=== PATIENT | male | born 1945 | race Caucasian/White ===

== ENCOUNTER → 2021-03-27 | Outpatient (CLI) | payer MEDICARE ==
[2021-03-23 11:00] VITALS: BP 115/71
[~2021-03-27] MED LIST: ALBU2.5V8 NEB; AMOX1TAB58 PO; ASPI325T8 PO; CHOL10003 PO; CYCL10TA2 PO; DOCU100C28 PO; FURO40TA4 PO; GENT5DRO3 EACHEYE; LACT1CAP19 PO; LOSA-73 PO; METO25TA4 PO; METO50TA4 PO; MULT-658 PO; NAPR-695 PO; NITR1PAT72 TD; OMEG1CAP27 PO; OMEP20CA16 PO; PANT40TA77 PO; PSYL0.5215 PO; SIMV80TA17 PO; [UNRECOGNIZED DRUG - CODE] PO; calcium with D
[2021-03-27 10:48] LABS: CALCIUM 10.2 mg/dL (8.5-10.1); GFR 72.5; POTASSIUM 5.1 mmol/L (3.5-5.1)
[2021-03-27 10:55] LABS: ALBUMIN 2.3 g/dL (3.4-5.0); ALBUMIN/GLOBULIN RATIO 0.5 (1.0-1.7); TOTAL BILIRUBIN 0.1 mg/dL (0.2-1.0); TOTAL PROTEIN 7.1 g/dL (6.4-8.2)
[2021-03-27 11:12] LABS: BASO # 0.1 x10^3/uL (0.0-0.2); BASO % 1 % (0-3); EOS # 0.5 x10^3/uL (0.0-0.7); EOS % 5 % (0-3); HEMATOCRIT 37.8 % (39.0-53.0); LYMPH # 1.4 x10^3/uL (1.0-4.8); LYMPH % 15 % (24-48); MEAN CORPUSCULAR HEMOGLOBIN 26 pg (25-35); MEAN CORPUSCULAR HGB CONC 32 g/dL (31-37); MEAN CORPUSCULAR VOLUME 81 fL (79-100); MONO # 0.9 x10^3/uL (0.0-1.1); MONO % 10 % (0-9); NEUT # 6.5 x10^3/uL (1.8-7.7); NEUT % 69 % (31-73); PLATELET COUNT 443 x10^3/uL (140-400); RED BLOOD COUNT 4.68 x10^6/uL (4.30-5.70); RED CELL DISTRIBUTION WIDTH 15.3 % (11.5-14.5); WHITE BLOOD COUNT 9.4 x10^3/uL (4.0-11.0)
== END ==
LOC: ONCLAB 10:10
PROVIDERS: ATTEND Internal Medicine Hematology & Oncology
DX: C34.00 Malignant neoplasm of unspecified main bronchus (principal)
CPT/HCPCS: 36415; 80053; 85025

== ENCOUNTER → 2021-04-07 | Outpatient (CLI) | payer MEDICARE ==
[2021-03-23 11:00] VITALS: BP 115/71
[~2021-04-07] MED LIST changes: +ACET500T33 PO; +GADOTERATE 7.5 MMOL/15ML VIAL. IVP ONE; +PROBIOTIC PO; +VIT C PO
--- NOTE | 2021-04-07 12:58 | RAD ---
EXAM: Brain MRI with and without contrast. HISTORY: Cancer staging TECHNIQUE: Multiplanar, multisequence magnetic resonance imaging of the brain was performed prior to and following the administration of intravenous contrast. COMPARISON: None. FINDINGS: There is no restricted diffusion to suggest acute or subacute infarction. There is no susce ptibility effect to suggest hemorrhage. There is no mass effect or midline shift. There is no hydroce phalus. There is cerebral volume loss. There are extensive scattered areas of signal change throughou t the cerebral white matter, most commonly due to chronic small vessel disease in patients of this ag e. There is a suspected chronic infarct within the posterior medial left parietal lobe. No suspicious enhancing lesion is seen. The orbits are unremarkable. The paranasal sinuses are unrema rkable. There is minimal mastoid fluid. There are normal flow voids within the cerebral vessels. Ther e is fusion is rotation throughout the visualized cervical spine, not formally assessed on this exam. There is soft tissue pannus surrounding the dens and degenerative change throughout the visualized c ervical levels. IMPRESSION: 1. No acute intracranial finding or evidence of intracranial metastatic disease. 2. Extensive scattered areas of signal change within the cerebral white matter, likely due to chronic small vessel disease in a patient of this age. 3. 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 4. Cerebral atrophy. Electronically signed by: Tessie Petersen MD (04/07/2021 12:56 PM) [id number]
--- NOTE | 2021-04-07 15:52 | RAD ---
CLINICAL HISTORY: Left lower lobe Lung cancer, initial evaluation COMPARISON: CT 03/21/2021, 03/18/2021 TECHNIQUE: Location of scan: [facility] Radiopharmaceutical Dose: 15.03 mCi F-18 FDG intravenous Blood glucose at time of study: 107 FDG uptake time = 60 minutes. Images were obtained from the mid head to the mid thighs. A low dose, noncontrast CT study was performed for the purpose of attenuation correction and anatomic localization. FINDINGS: Head and Neck: Physiologic activity is seen within the head and neck Chest: Nodular opacity in the medial left lower lobe measures approximately 4.8 x 4.6 cm with an SUV max of 20.2. Nodular hypermetabolic foci are seen in the left pleural space which may represent metastatic involve ment or reactive change given recent pigtail catheter placement SUV max measuring 11.5 caudally. Smal ler nodular foci are seen throughout the left pleural space, a more focal region laterally left upper lobe measures 4 x 1.5 cm with an SUVmax of 7.9. Small left pleural effusion is mildly hypermetabolic . No definite hypermetabolic mediastinal or hilar lymphadenopathy. No hypermetabolic right lung lesio n. Abdomen and Pelvis: Hypermetabolic portocaval lymph node has an SUVmax of 4.4. Increased activity within the rectum with an SUV max of 6.1. Mild uptake within the sigmoid colon with an SUV max of 3.4 Physiologic activity is seen within the renal collecting systems, bowel and solid organs including li herlinda. Aortic calcifications are seen. Otherwise, no definite hypermetabolic lymphadenopathy in the abd omen or pelvis. Moderate colonic stool content. No bowel obstruction. Simple appearing left upper pole renal cyst. Skeletal: No suspicious hypermetabolic osseous lesion. Reference SUV Values: Mediastinal SUV Max: 2.5 Liver SUV Max: 3.5 IMPRESSION: 1. Hypermetabolic masslike opacity in the left lower lobe is suspicious for primary malignancy and c an be correlated with biopsy. 2. Hypermetabolic pleural nodularity is suspicious for pleural metastatic disease. Mildly hypermetab olic left pleural effusion is also seen. 3. Borderline hypermetabolic portacaval lymph node with an SUV max of 4.4 upper lobe although not en larged by size criteria and therefore may be reactive or metastatic. 4. Increased uptake within the rectum and mid sigmoid colon, primary malignancy is not excluded and recommend correlation with colonoscopy. Radiation Dosimetry: The radiopharmaceutical used for this exam delivers approximately 0.7 mSv/mCi (70 mRem/mCi) Source: ICRP Publication 106 Electronically signed by: Franklyn Benites MD (04/07/2021 3:49 PM) [id number]
== END ==
LOC: MRI 11:29
PROVIDERS: ATTEND Internal Medicine Hematology & Oncology
DX: C34.00 Malignant neoplasm of unspecified main bronchus (principal); R91.1 Solitary pulmonary nodule; J90 Pleural effusion, not elsewhere classified; I73.9 Peripheral vascular disease, unspecified; H16.429 Pannus (corneal), unspecified eye; I70.0 Atherosclerosis of aorta
CPT/HCPCS: 70553; 78815; A9552; A9575

== ENCOUNTER 2021-04-26 08:25 | Outpatient (CLI) | payer MEDICARE ==
[2021-04-26] VITALS (11 sets, daily range): BP systolic 112–138; BP diastolic 65–83
[~2021-04-26] VITALS: Ht 172.7 cm; Wt 82.2 kg
[~2021-04-26 08:25] MED LIST changes: -ACET500T33 PO; -GADOTERATE 7.5 MMOL/15ML VIAL. IVP ONE; -PROBIOTIC PO; -VIT C PO
[2021-04-26] MEDS ORDERED: LIDOCAINE WITH 8.4% SOD BICARB 3 ML DISP.SYRIN. ONE (08:53)
[2021-04-26] MEDS ORDERED: LIDOCAINE 1%/EPI 1:100,000 20 ML VIAL. ONE (08:53)
[2021-04-26] MEDS ORDERED: VIT C PO (09:04)
[2021-04-26] MEDS ORDERED: PROBIOTIC PO (09:04)
[2021-04-26] MEDS ORDERED: ACET500T33 PO (09:04)
[2021-04-26] MEDS ORDERED: fentaNYL PF VIAL 250 MCG/5 ML VIAL ONE (09:06)
[2021-04-26] MEDS ORDERED: MIDAZOLAM HCL/PF 5 MG/5 ML VIAL. ONE (09:06)
[2021-04-26] MEDS ORDERED: MIDAZOLAM HCL/PF 5 MG/5 ML VIAL. IV ONE (09:15)
[2021-04-26] MEDS ORDERED: LIDOCAINE 1%/EPI 1:100,000 20 ML VIAL. SQ ONE (09:15)
[2021-04-26] MEDS ORDERED: LIDOCAINE WITH 8.4% SOD BICARB 3 ML DISP.SYRIN. IJ ONE (09:15)
[2021-04-26] MEDS ORDERED: fentaNYL PF VIAL 250 MCG/5 ML VIAL IV ONE (09:15)
[2021-04-26 09:24] LABS: BASO # 0.1 x10^3/uL (0.0-0.2); BASO % 1 % (0-3); EOS # 0.8 x10^3/uL (0.0-0.7); EOS % 10 % (0-3); HEMATOCRIT 37.8 % (39.0-53.0); HEMOGLOBIN 12.3 g/dL (13.0-17.5); LYMPH # 1.5 x10^3/uL (1.0-4.8); LYMPH % 17 % (24-48); MEAN CORPUSCULAR HEMOGLOBIN 26 pg (25-35); MEAN CORPUSCULAR HGB CONC 32 g/dL (31-37); MEAN CORPUSCULAR VOLUME 80 fL (79-100); MONO # 0.8 x10^3/uL (0.0-1.1); MONO % 9 % (0-9); NEUT # 5.5 x10^3/uL (1.8-7.7); NEUT % 63 % (31-73); PLATELET COUNT 263 x10^3/uL (140-400); RED BLOOD COUNT 4.73 x10^6/uL (4.30-5.70); RED CELL DISTRIBUTION WIDTH 15.9 % (11.5-14.5); WHITE BLOOD COUNT 8.7 x10^3/uL (4.0-11.0)
[2021-04-26 09:32] LABS: CALCIUM 9.8 mg/dL (8.5-10.1); CREATININE 0.8 mg/dL (0.7-1.3); GFR 93.7
[2021-04-26 09:38] LABS: PROTHROMBIN TIME PATIENT 13.2 SEC (11.7-14.0)
--- NOTE | 2021-04-26 12:33 | RAD ---
Date: 04/26/2021 PROCEDURES: 1. Fluoroscopically and ultrasound-guided placement of right internal jugular tunnel central venous c atheter with port (Bard PowerPort, Groshong tip ). 2. CT-guided biopsy, left lung mass Clinical Indication: Primary lung cancer, left lower lobe. Pleural metastasis. Further tissue sampli ng needed for pathologic evaluation/PDL testing Consent: The procedure was explained in its entirety to the patient or the patients designated repres entative by a member of the treatment team, including a discussion of the risks, benefits and commonl y accepted alternatives to the procedure, as well as the expected consequences of no therapy whatsoev er. Discussion of the risks included, but was not limited to, those that are most frequent and thos e that are rare but possibly severe or life-threatening, as well as the possibility of unforeseen com plications. The patient was brought to the CT scanner and placed in the prone position. A timeout procedure was p erformed. The posterior chest was prepped and draped using sterile barrier technique. CT imaging was obtained redemonstrating a left lower lobe pulmonary mass with multifocal pleural thickening. The dom inant masses targeted for biopsy. 1% lidocaine was administered for local anesthesia. Under intermitt ent CT guidance a 17-gauge needle was advanced into the mass and core biopsy samples were obtained. T he needle was removed. Manual pressure was held. Repeat CT imaging demonstrates no pneumothorax or ot her immediate complication. Sterile dressings were applied. The patient was transferred to the fluoro scopy suite in stable condition. A timeout procedure was repeated. The right neck and chest were prepped and draped using maximum ster ile barrier technique including the use of: Current guideline approved cutaneous antisepsis, a large sterile sheet to establish a sterile field. Additionally the walking dragline operator wore a hat, mask, sterile glove s, a sterile gown during the procedure as well as practiced acceptable hand hygiene prior to placing the port. Ultrasound evaluation showed the right jugular vein to be patent and compressible. 1 % lidocaine with epinephrine was administered to the skin and subcutaneous tissues overlying the right neck and chest . Under direct ultrasound guidance a single wall puncture was made followed by tract dilation and sidra cement of a sheath. An ultrasound image was saved and sent to PACS. Next, an incision was made in an infraclavicular location and a pocket created. The catheter was tunneled between the pocket and the venotomy site. The catheter was advanced through the peel away sheath, under fluoroscopic guidance, such that it's tip was in the mid right atrium. The catheter was connected to the port reservoir. Th e port was accessed and found to flush and aspirate normally. The reservoir was then placed into the subcutaneous pocket. The wound was closed in layers using 4-0 Vicryl suture. Dermabond was applied overlying the wound, and venotomy site. The patient tolerated procedure without immediate complicatio n. Sedation: The procedure was performed under conscious sedation including continuous cardiopulmonary m onitoring via a dedicated sedation nurse. Kdue-os-nbta sedation time: 70 minutes Fluoroscopy time: 0.4 mins Dose area product 2 Perez centimeter squared Impression: 1. Successful CT-guided biopsy, left lower lobe pulmonary mass 2. Placement of a right internal jugular port with ultrasound and fluoroscopic guidance CT DOSING PQRS STATEMENT: One or more of the following individualized dose reduction techniques were utilized for this examinat ion: 1. Automated exposure control 2. Adjustment of the mA and/or kV according to patient size 3. Use of iterative reconstruction technique Electronically signed by: Juanjo Thompson MD (04/26/2021 12:31 PM) [id number]
--- NOTE | 2021-04-26 13:40 | NUR ---
Discharge Note: ROCKY PEDRAZA Discharge instructions and discharge home medications reviewed with Patient and a copy given. All questions have been answered and understanding verbalized. The following instructions and handouts were given: Lung biopsy, Port Placement, and moderate sedation. Discontinued lines and drains: Right wrist iv dc'd, tip intact, bandage applied. Patient discharged to home with via personal vehicle.
--- NOTE | 2021-04-26 17:22 | RAD ---
XR CHEST 1V CLINICAL INDICATIONS: Reason: Post biopsy / Spl. Instructions: / History: COMPARISON: March 23, 2021. Findings: There is mild elevation of the left hemidiaphragm. Small left-sided pleural effusion and as sociated left lung base atelectasis or infiltrate is evident and there is mild improvement. Right kenney g field remains clear. No pneumothorax is seen. Heart size and mediastinum and pulmonary vasculature and both david are unremarkable. Right IJ central line is in place and the tip is seen within the mid superior vena cava above the level of the right atrium. IMPRESSION: Mild improvement in small left-sided pleural effusion and associated left lung base atele ctasis or infiltrate. Placement of right IJ central line. No pneumothorax. Electronically signed by: Catarino Hadley MD (04/26/2021 5:19 PM) [id number]
--- NOTE | 2021-04-28 18:08 | PATHOLOGY ---
[facility] Accession Number: [id number] . 01 Material submitted: . lung - LEFT LUNG MASS BIOPSY. Modifiers: left . 01 Clinical history: . L LUNG CA . 02 Diagnosis: Left lung mass, CT guided needle biopsies: - ADENOCARCINOMA, MODERATELY DIFFERENTIATED. SEE COMMENT. (JPM:joel; 04/27/2021) S 04/28/2021 0845 Local . 02 Comment: Sections of the left lung mass needle biopsy show replacement of lung parenchyma by a malignant epithelial neoplasm. The latter is composed of irregular acinar structures which infiltrate a reactive fibrotic stroma. The tumor also focally has a papillary configuration. The tumor cells have modest amounts of eosinophilic cytoplasm, and possess enlarged, rounded to ovoid moderately pleomorphic hyperchromatic nuclei. There are mitotic figures present. A properly controlled panel of immunoperoxidase stains is obtained on A1 and yields the following results: . Cytokeratin 7: Tumor cells positive. Cytokeratin 20: Tumor cells negative. CDX2: Tumor cells negative. TTF-1: Tumor cells positive. Napsin A: Tumor cells focally positive. . The morphologic and immunophenotypic findings are supportive of the diagnosis of a moderately differentiated pulmonary acinar adenocarcinoma. The results were discussed with Dr. Thompson on 04/27/2021. The case is also examined by Dr. Garcia, who concurs with the diagnosis. (JPM:joel; 04/27/2021) . . Special stains performed: Immunoperoxidase stains for CK7, CK20, CDX2, TTF-1 and napsin A on A1 . 02 Electronically signed: . Dread Membreno MD, Pathologist NPI- [id number] . 01 Gross description: . The specimen is received in formalin, labeled "Teodoro Eddy, left lung mass". Received are two needle cores of pale hilliard tissue measuring 0.5 and 1.2 cm in length, with each measuring 0.1 cm in diameter. The specimen is submitted entirely in cassettes A1 and A2. (CAA; 04/26/2021) QAC/QAC 04/26/2021 1516 Local . 02 Pathologist provided ICD-10: C34.92 . 02 CPT . 565253, [id number], S37257 Specimen Comment: A courtesy copy of this report has been sent to [phone], [phone] Specimen Comment: [id number], Specimen Comment: Report sent to , DR JEWELL / DR COOLEY Performed at: 01 [facility] [address], [place] [id number] MD Ajay Garcia MD Phone: [phone] Performed at: 02 [facility] [address] [place], [place] [id number] MD Dread Membreno MD Phone: [phone]
== END 2021-04-26 13:46 | disposition home or self-care (01) ==
LOC: INTRAD 08:25
PROVIDERS: ATTEND Internal Medicine Hematology & Oncology
DX: Z45.2 Encounter for adjustment and management of vascular access device (principal); R91.8 Other nonspecific abnormal finding of lung field; C34.32 Malignant neoplasm of lower lobe, left bronchus or lung; I10 Essential (primary) hypertension; E78.00 Pure hypercholesterolemia, unspecified; G47.30 Sleep apnea, unspecified; K21.9 Gastro-esophageal reflux disease without esophagitis; E11.9 Type 2 diabetes mellitus without complications; Z87.891 Personal history of nicotine dependence; Z79.899 Other long term (current) drug therapy; Z98.890 Other specified postprocedural states; Z88.8 Allergy status to other drugs, medicaments and biological substances
CPT/HCPCS: 32408; 36415; 36561; 71045; 76937; 77001; 80048; 85025; 85610; 99152; 99153; C1788; C1892; J0690; J2250; J3010; J3490

== ENCOUNTER 2021-10-30 23:57 | Inpatient (IN) | payer MEDICARE ==
[~2021-10-30] VITALS: Ht 172.7 cm; Wt 76.5 kg
[2021-10-30 23:00] VITALS: BP 113/78
[~2021-10-30 23:57] MED LIST changes: +ACET500T33 PO; +CYCL10TA19 PO; -CYCL10TA2 PO; +PROBIOTIC PO; +VIT C PO
[2021-10-31] VITALS (9 sets, daily range): BP systolic 96–152; BP diastolic 63–83
[2021-10-31] MEDS ORDERED: FERR325T14 PO (00:55)
[2021-10-31] MEDS ORDERED: GABA-585 PO (00:55)
[2021-10-31] MEDS ORDERED: NITR1PAT72 TD (00:55)
[2021-10-31] MEDS ORDERED: HYDR25TA PO (00:55)
[2021-10-31 07:51] LABS: BASO # 0.1 x10^3/uL (0.0-0.2); BASO % 1 % (0-3); EOS % 10 % (0-3); HEMATOCRIT 42.8 % (39.0-53.0); HEMOGLOBIN 13.7 g/dL (13.0-17.5); LYMPH # 1.4 x10^3/uL (1.0-4.8); LYMPH % 14 % (24-48); MEAN CORPUSCULAR HEMOGLOBIN 27 pg (25-35); MEAN CORPUSCULAR HGB CONC 32 g/dL (31-37); MEAN CORPUSCULAR VOLUME 85 fL (79-100); MONO % 10 % (0-9); NEUT # 6.6 x10^3/uL (1.8-7.7); NEUT % 65 % (31-73); PLATELET COUNT 257 x10^3/uL (140-400); RED BLOOD COUNT 5.06 x10^6/uL (4.30-5.70); RED CELL DISTRIBUTION WIDTH 15.7 % (11.5-14.5); WHITE BLOOD COUNT 10.2 x10^3/uL (4.0-11.0)
[2021-10-31 08:07] LABS: CALCIUM 10.7 mg/dL (8.5-10.1); CREATININE 0.7 mg/dL (0.7-1.3); GFR 109.1; POTASSIUM 4.1 mmol/L (3.5-5.1)
[2021-10-31] MEDS ORDERED: MAGNESIUM HYDROXIDE 2,400 MG/30 ML ORAL.SUSP. PO PRN (09:45)
[2021-10-31] MEDS ORDERED: BISACODYL 10 MG SUPP.RECT. PR PRN (09:45)
[2021-10-31] MEDS ORDERED: ZOLPIDEM 5 MG TABLET. PO PRN (09:45)
[2021-10-31] MEDS ORDERED: MORPHINE SULFATE 2 MG/ML INJ. IV PRN (09:45)
[2021-10-31] MEDS ORDERED: ONDANSETRON PF 4 MG/2 ML VIAL. IVP PRN (09:45)
[2021-10-31] MEDS ORDERED: HYDROcodone/APAP 5/325MG 1 TAB TABLET PO PRN (09:45)
[2021-10-31] MEDS ORDERED: ACETAMINOPHEN 325 MG TABLET. PO PRN (09:45)
[2021-10-31] MEDS ORDERED: MAG HYDROX/ALUMINUM HYD/SIMETH 30 ML ORAL.SUSP PO PRN (09:45)
--- NOTE | 2021-10-31 09:48 | PDOC1 ---
History and Physical Date of Admission Date of Admission DATE: 10/31/21 TIME: 09:31 Identification/Chief Complaint Chief Complaint Recurrent left pleural effusion Source Source: Patient History of Present Illness History of Present Illness Patient is a 76-year-old male with past medical history left lung adenocarcinoma, who presents to the ED as a transfer [facility] due to concerns for recurrent left pleural effusion. He was initially sent to [facility] ER at the behest of his PCP, Dr. Stroud. Chest x-ray at [facility] did show a small left pleural effusion with lingular and left lower lobe infiltrate and/or scarring, that appears increased from prior. He states he was admitted on 03/14/2021 and had thoracentesis performed at that time. He did follow-up with oncology, but states he decided not to pursue chemotherapy or radiation for the findings of stage IV lung adenocarcinoma. Patient states he lives at home with his , and gets around at home rather gingerly. At the time of my evaluation he is breathing on room air. Labs on admission were rather unremarkable. He has been admitted for further medical management. Past Medical History Cardiovascular: CAD, Hyperlipidemia Pulmonary: No pertinent hx Musculoskeletal: low back pain Past Surgical History Past Surgical History Cervical fusion, thoracentesis Past Surgical History: Tonsillectomy Family History Family History: Coronary Artery Disease, Diabetes Social History Smoke: No ALCOHOL: none Drugs: None Current Medications Current Medications Active Scripts Active Reported Hydroxyzine Hcl 25 Mg Tablet 25 Mg PO QID NITRO-DUR 0.2mg/hr (Nitroglycerin) 1 Each Patch.td24 1 Each TD DAILY Ferrous Sulfate 325 Mg Tablet 1 Tab PO DAILY Gabapentin (Gabapentin) 100 Mg Capsule 200 Mg PO DAILY Tylenol Extra Strength (Acetaminophen) 500 Mg Tablet 2 Tab PO Q8HRS PRN [probiotic w/vit C] 2 Pkt PO DAILY Gentamicin Sulfate 0.3% Ophth Soln (Gentamicin Sulfate) 5 Ml Drops 1 Drop EACHEYE BID 5 Days Docusate Sodium 100 Mg Capsule 1 Cap PO BID 7 Days Metamucil (Psyllium Husk) 0.52 Gm Capsule 0.52 Gm PO BID Cyclobenzaprine Hcl 10 Mg Tablet 10 Mg PO BID NITRO-DUR 0.2mg/hr (Nitroglycerin) 1 Each Patch.td24 1 Each TD DAILY Vitamin D3 (Cholecalciferol (Vitamin D3)) 1,000 Unit Tablet 1 Tab PO DAILY Losartan Potassium 50 Mg Tablet 50 Mg PO DAILY Simvastatin 80 Mg Tablet 80 Mg PO HS Niacin Flush Free 500 Mg Cap (Niacin (Inositol Niacinate)) 400 Mg Capsule 500 Mg PO BID Centrum Silver Tablet (Multivits-Min/Fa/Lycopene/Lut) 1 Each Tablet 1 Each PO DAILY Omeprazole 20 Mg Capsule.dr 20 Mg PO DAILY Allergies Allergies: Coded Allergies: adhesive (Verified Allergy, Mild, 10/02/13) ROS Review of System GENERAL: Weakness. No history of weight change or fevers. SKIN: No bruising, hair changes or rashes. EYES: No blurred, double or loss of vision. NOSE AND THROAT: No history of nosebleeds, hoarseness or sore throat. HEART: Denies chest pain, denies palpitations. LUNGS: Denies cough, hemoptysis, wheezing or shortness of breath. GASTROINTESTINAL: Denies nausea, vomiting, abdominal pain. GENITOURINARY: Denies dysuria, frequency, urgency, hematuria. NEUROLOGIC: Denies history of numbness, tingling, tremor or weakness. PSYCHIATRIC: Denies anxiety, denies depression. ENDOCRINE: No history of heat or cold intolerance, polyuria or polydipsia. EXTREMITIES: Some muscle weaknes. Denies joint pain, pain on walking or stiffness. Physical Exam Physical Exam General: Alert, Oriented X3, Cooperative, No acute distress HEENT: PERRLA, EOMI Lungs: Decreased breath sounds left lung base. Normal air movement Heart: RRR, no murmurs Cardiovascular: S1, S2 Abdomen: Normal bowel sounds, Soft, No tenderness Extremities: No clubbing, No cyanosis Skin: No rashes, No significant lesion Neuro: Normal speech, Normal tone, Sensation intact Psych/Mental Status: Mental status NL, Mood NL Vitals Vitals Vital Signs Date Time Temp Pulse Resp B/P (MAP) Pulse Ox O2 Delivery O2 Flow Rate FiO2 10/31/21 07:30 98.0 88 18 133/74 (93) 93 Room Air 98.0 Labs Labs Laboratory Tests Test 10/31/21 07:10 White Blood Count 10.2 x10^3/uL (4.0-11.0) Red Blood Count 5.06 x10^6/uL (4.30-5.70) Hemoglobin 13.7 g/dL (13.0-17.5) Hematocrit 42.8 % (39.0-53.0) Mean Corpuscular Volume 85 fL (79-100) Mean Corpuscular Hemoglobin 27 pg (25-35) Mean Corpuscular Hemoglobin Concent 32 g/dL (31-37) Red Cell Distribution Width 15.7 % (11.5-14.5) Platelet Count 257 x10^3/uL (140-400) Neutrophils (%) (Auto) 65 % (31-73) Lymphocytes (%) (Auto) 14 % (24-48) Monocytes (%) (Auto) 10 % (0-9) Eosinophils (%) (Auto) 10 % (0-3) Basophils (%) (Auto) 1 % (0-3) Neutrophils # (Auto) 6.6 x10^3/uL (1.8-7.7) Lymphocytes # (Auto) 1.4 x10^3/uL (1.0-4.8) Monocytes # (Auto) 1.0 x10^3/uL (0.0-1.1) Eosinophils # (Auto) 1.0 x10^3/uL (0.0-0.7) Basophils # (Auto) 0.1 x10^3/uL (0.0-0.2) Sodium Level 140 mmol/L (136-145) Potassium Level 4.1 mmol/L (3.5-5.1) Chloride Level 104 mmol/L (98-107) Carbon Dioxide Level 30 mmol/L (21-32) Anion Gap 6 (6-14) Blood Urea Nitrogen 12 mg/dL (8-26) Creatinine 0.7 mg/dL (0.7-1.3) Estimated GFR (Cockcroft-Gault) 109.1 Glucose Level 95 mg/dL (70-99) Calcium Level 10.7 mg/dL (8.5-10.1) Laboratory Tests Test 10/31/21 07:10 White Blood Count 10.2 x10^3/uL (4.0-11.0) Red Blood Count 5.06 x10^6/uL (4.30-5.70) Hemoglobin 13.7 g/dL (13.0-17.5) Hematocrit 42.8 % (39.0-53.0) Mean Corpuscular Volume 85 fL (79-100) Mean Corpuscular Hemoglobin 27 pg (25-35) Mean Corpuscular Hemoglobin Concent 32 g/dL (31-37) Red Cell Distribution Width 15.7 % (11.5-14.5) Platelet Count 257 x10^3/uL (140-400) Neutrophils (%) (Auto) 65 % (31-73) Lymphocytes (%) (Auto) 14 % (24-48) Monocytes (%) (Auto) 10 % (0-9) Eosinophils (%) (Auto) 10 % (0-3) Basophils (%) (Auto) 1 % (0-3) Neutrophils # (Auto) 6.6 x10^3/uL (1.8-7.7) Lymphocytes # (Auto) 1.4 x10^3/uL (1.0-4.8) Monocytes # (Auto) 1.0 x10^3/uL (0.0-1.1) Eosinophils # (Auto) 1.0 x10^3/uL (0.0-0.7) Basophils # (Auto) 0.1 x10^3/uL (0.0-0.2) Sodium Level 140 mmol/L (136-145) Potassium Level 4.1 mmol/L (3.5-5.1) Chloride Level 104 mmol/L (98-107) Carbon Dioxide Level 30 mmol/L (21-32) Anion Gap 6 (6-14) Blood Urea Nitrogen 12 mg/dL (8-26) Creatinine 0.7 mg/dL (0.7-1.3) Estimated GFR (Cockcroft-Gault) 109.1 Glucose Level 95 mg/dL (70-99) Calcium Level 10.7 mg/dL (8.5-10.1) Images Images PATIENT: ROCKY PEDRAZA DACCOUNT: [id number] : 1945 LOCATION: ER AGE: 76 SEX: M EXAM STATUS: REG ER ORD. PHYSICIAN: ALBERT GARLAND DO REASON: Dizziness, weakness PROCEDURE: PORTABLE CHEST 1V EXAMINATION: Chest radiograph. VIEWS: Single AP view of the chest COMPARISON: Chest radiograph from 06/02/2021 INDICATION:76 years, Male, dizziness, weakness. FINDINGS: Right chest Port-A-Cath with tip in the SVC. Stable cardiac mediastinal silhouette. Left perihilar and basilar opacity appears mildly increased from prior. Small left pleural effusion. Biapical pleural scarring. Right lung is clear. No acute osseous process. Cervical spinal fusion instrumentation is again noted. IMPRESSION: Small left pleural effusion with lingular and left lower lobe infiltrate and/or scarring, this appears increased from prior. Electronically signed by: Madi Hinojosa DO (10/30/2021 2:50 PM) [id number] VTE Prophylaxis Ordered VTE Prophylaxis Devices: No VTE Pharmacological Prophylaxi: Yes Assessment/Plan Assessment/Plan Recurrent left pleural effusion Plan: X-ray from [facility] showed small left pleural effusion with lingular and left lower lobe infiltrate and/or scarring, that appears increased from prior. He is breathing comfortably on room air with his only concern being his intermittent dizziness and difficulty getting around the house. Will repeat chest x-ray and consult pulmonology. If immediate need for thoracentesis, will consult IR. If not he may follow-up as outpatient for thoracentesis. FEN - Cardiac diet PPX - Heparin FULL CODE Dispo - observation for above Advance Care Planning: Total time spent ejoh-bs-neac with patient 16 minutes in discussion with goals of care, comfort care, end-of-life care, code status; patient names his (Lisbeth Pedraza) as surrogate decision-maker. Justifications for Admission Other Justification YOSI PEREYRA MD Oct 31, 2021 09:48
--- NOTE | 2021-10-31 10:11 | NUR ---
SS following for discharge planning. SS reviewed pt chart and discussed with pt RN. Pt is from home with spouse and is currently on room air. History of lung cancer. Pt has left PE. Pulmonology consulted. PT/OT ordered. SS will continue to follow for discharge planning.
--- NOTE | 2021-10-31 11:34 | CONS ---
DATE OF CONSULTATION: 10/31/2021 PULMONARY CONSULTATION ATTENDING PHYSICIAN: Virgilio García MD. REASON FOR CONSULTATION: Lung cancer, possible recurrent pleural effusion. HISTORY OF PRESENT ILLNESS: The patient is a 76-year-old male who is known to me from his previous hospitalization in March of last year. The patient has a diagnosis of stage IV left lung adenocarcinoma. He previously presented with a loculated left-sided pleural effusion, which required thoracentesis, followed by TPA. Cytology was positive for non-small cell lung cancer. The patient has since been on immunotherapy with Keytruda. According to the patient's , it did not work. He was given the option of chemo and a port was placed as well, but he declined to have chemo. He was brought into the hospital and was complaining of some dizziness. He has some left chest wall tenderness. He has no significant cough, no fever, no chills. No headaches, no nausea, vomiting or diarrhea. I reviewed the patient's chest x-ray and it revealed a mass effect in the left lung with possible small pleural effusion. I have also reviewed decubitus film, which did not show any significant free loculation. Consultation requested for further evaluation. PAST MEDICAL HISTORY: 1. Significant for history of stage IV adenocarcinoma involving the left lung. The patient had malignant left pleural effusion. He also had TPA due to loculations. 2. Minimal history of tobacco use. 3. History of coronary artery disease, hyperlipidemia, and low back pain. PAST SURGICAL HISTORY: Cervical fusion. Prior left thoracentesis and chest tube and TPA, and tonsillectomy. FAMILY HISTORY: Coronary artery disease. SOCIAL HISTORY: Smoked for 10-15 years before quitting 44 years ago. REVIEW OF SYSTEMS: Twelve-point review of system obtained. Pertinent positives discussed in my present illness, otherwise noncontributory. All systems that were negative were reviewed as well. MEDICATIONS: All reviewed as listed in the MRAD. FAMILY HISTORY: Noncontributory to lungs. PHYSICAL EXAMINATION: VITAL SIGNS: Reviewed. Pulse ox 96% on room air. Blood pressure stable 133 systolic, afebrile. NECK: Supple. LUNGS: With slightly diminished breath sounds, left base. CARDIOVASCULAR: With a regular rate. ABDOMEN: Soft, nontender. EXTREMITIES: With no pitting edema. LABORATORY DATA: Reviewed. White cell count of 10.2, hemoglobin 13.7, platelets are 257. BUN 12, creatinine 0.7. IMPRESSION: 1. 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 He is status post Keytruda and being followed by [facility]. The patient has not responded to chemo according to the . He deferred a systemic chemo. Now, he presents with dizziness. His chest x-ray shows a mass effect with possible small effusion. Effusion not well seen on a decubitus film. We will obtain a noncontrast CT chest for further evaluation. RECOMMENDATIONS: 1. Discussed with the patient and the . We will obtain a noncontrast CT chest to better assess for effusion. I suspect it could be small partially loculated and most of it is the mass. 2. The patient's oxygenation status is stable. 3. Monitor blood pressure closely. 4. The patient continues to defer any further chemo. 5. The patient to follow up with [facility] as needed post-discharge. 6. Further recommendations to follow after CT of the chest has been done. KEVIN DR: Chandan TID: [id number] MTDD
[2021-10-31] MEDS ORDERED: TOBRAMYCIN 0.3% OPHTH SOLUTION 5ML BOTTLE. OU SCH (12:00)
[2021-10-31] MEDS: MULTIVITAMIN with MINERAL TABLET. PO SCH (12:44)
[2021-10-31] MEDS: hydrOXYzine 25 MG TABLET PO SCH ×3 (12:44→21:52)
[2021-10-31] MEDS: FERROUS SULFATE 325 MG TABLET. PO SCH (12:44)
[2021-10-31] MEDS: GABAPENTIN 100 MG CAPSULE. PO SCH (12:44)
[2021-10-31] MEDS: LOSARTAN POTASSIUM 50 MG TABLET. PO SCH (12:45)
[2021-10-31] MEDS: NITROGLYCERIN 0.2MG/HR PATCH. TD SCH (12:45)
[2021-10-31] MEDS: PSYLLIUM HUSK (SUGAR FREE) 1 PKT PACKET PO SCH ×2 (12:45→21:52)
[2021-10-31] MEDS ORDERED: DEXT1DRO7 OU (12:57)
[2021-10-31] MEDS ORDERED: POLYVINYL ALCOHOL 1.4% OPHTH SOLUTION 15ML BOTTLE. OU PRN (14:15)
--- NOTE | 2021-10-31 16:25 | RAD ---
EXAMINATION: XR CHEST DECUBITUS 1V LT. HISTORY: 76 years Male Reason: Recurrent left pleural effusion / COMPARISON: Chest x-ray from the same day. Findings: Left decubitus view demonstrate suggestion of a small left pleural effusion. The positionin g of the fluid does not appear to be significantly changed from the upright position radiograph sugge stive of loculation. There is left the lower lobe infiltrate or atelectasis. The right lung is clear. The heart size appears enlarged. Right IJ infusion port and the cervical spine fusion hardware noted . Impression: Findings suggestive of small loculated left pleural effusion. Left basilar infiltrate or atelectasis. Electronically signed by: Nakul Flannery MD (10/31/2021 4:23 PM) [id number]
--- NOTE | 2021-10-31 16:37 | RAD ---
EXAMINATION: CT Chest Without IV contrast. INDICATION:76 years, Male, lung cancer, loculated left pleural effusion. COMPARISON: PET/CT dated 04/07/2021. CT chest dated 03/21/2021. TECHNIQUE: Spiral CT was obtained from the jugular notch through the posterior costophrenic recess. S agittal and coronal reformats were obtained. Exposure: One or more of the following individualized dose reduction techniques were utilized for thi s examination: 1. Automated exposure control 2. Adjustment of the mA and/or kV according to patient size 3. Use of iterative reconstruction technique. FINDINGS: LUNGS/PLEURA: Central airways are patent. Large consolidative in the left lower lobe with volume loss and left-sided mediastinal shift. Innumerable left pleural and fissure based nodules/masses, the lar gest measures 3.6 x 1.2 cm, overall worsened since prior exam. Trace amount of left pleural effusion. No pneumothorax. There is a 3 mm solid pulmonary nodule in the medial aspect of right upper lobe (s eries 3 image 27). There is a 3 mm solid pulmonary nodule in the right middle lobe (series 3 image 44 ). Dependent subsegmental atelectasis in right lung base. MEDIASTINUM: Nonspecific prominent left paratracheal lymph node measures up to 8 mm in short axis, un changed since prior exam. Mild ascending thoracic aortic aneurysm measures up to 4.3 cm in maximum di ameter. Pulmonary arteries are normal in caliber. The heart is normal in size. No pericardial effusio n. Severe calcified coronary atherosclerosis. The visualized thyroid and the esophagus are unremarkab le. Right Mediport catheter terminates in the distal SVC. AXILLA/SOFT TISSUE: No supraclavicular or axillary adenopathy. Regional soft tissues are within linette l limits. UPPER ABDOMEN: Fluid density 2.0 cm lesion in the superior pole left kidney, likely cyst. Large amoun t of stool visualized colon. BONES: No evidence of acute fractures or aggressive osseous lesions. IMPRESSION: 1. Large consolidative opacity in the left lower lobe, compatible with known pulmonary malignancy wit h collapsed lung, worsened since prior exam. 2. Increasing size and number of left pleural and fissure based nodules/masses compatible with metast asis. 3. Two sub-5 mm solid pulmonary nodules in the right upper and middle lobes, indeterminate. 4. Trace amount of layering left pleural effusion. 5. Mild ascending thoracic aortic aneurysm. Electronically signed by: Griselda Hernandez MD (10/31/2021 4:35 PM) [id number]
[2021-10-31] MEDS ORDERED: SIMVASTATIN 40 MG TABLET. PO SCH (21:00)
[2021-10-31] MEDS: DOCUSATE SODIUM 100 MG CAPSULE. PO SCH (21:52)
[2021-10-31] MEDS: CYCLOBENZAPRINE 10 MG TABLET. PO SCH (21:52)
[2021-10-31] MEDS: HEPARIN for SUB-Q USE 5,000 UNIT/ML VIAL. SQ SCH ×2 (21:54→22:14)
[2021-11-01 03:00] VITALS: BP 134/86
[2021-11-01 07:00] VITALS: BP 137/83
[2021-11-01] MEDS ORDERED: PANTOPRAZOLE 40 MG TABLET.DR. PO SCH (07:30)
[2021-11-01] MEDS: MULTIVITAMIN with MINERAL TABLET. PO SCH (09:15)
[2021-11-01] MEDS: LOSARTAN POTASSIUM 50 MG TABLET. PO SCH (09:15)
[2021-11-01] MEDS: GABAPENTIN 100 MG CAPSULE. PO SCH (09:15)
[2021-11-01] MEDS: FERROUS SULFATE 325 MG TABLET. PO SCH (09:16)
[2021-11-01] MEDS: DOCUSATE SODIUM 100 MG CAPSULE. PO SCH (09:16)
[2021-11-01] MEDS: HEPARIN for SUB-Q USE 5,000 UNIT/ML VIAL. SQ SCH (09:16)
[2021-11-01] MEDS: CYCLOBENZAPRINE 10 MG TABLET. PO SCH (09:16)
[2021-11-01] MEDS: NITROGLYCERIN 0.2MG/HR PATCH. TD SCH (09:16)
[2021-11-01] MEDS: hydrOXYzine 25 MG TABLET PO SCH ×2 (09:16→13:32)
[2021-11-01] MEDS: PSYLLIUM HUSK (SUGAR FREE) 1 PKT PACKET PO SCH (09:16)
--- NOTE | 2021-11-01 09:49 | PDOC ---
PULMONARY PROGRESS NOTES DATE: 11/01/21 TIME: 09:46 Subjective Complaint of left chest wall pain. No shortness of breath. Remains on room air Vitals Vital Signs Date Time Temp Pulse Resp B/P (MAP) Pulse Ox O2 Delivery O2 Flow Rate FiO2 11/01/21 09:15 89 137/83 11/01/21 07:00 98.0 18 95 98.0 10/31/21 20:00 Room Air General: Alert, No acute distress Lungs: Other Cardiovascular: S1 Abdomen: Soft Extremities: No Edema Labs Laboratory Tests Test 10/31/21 07:10 11/01/21 04:55 White Blood Count 10.2 x10^3/uL (4.0-11.0) Red Blood Count 5.06 x10^6/uL (4.30-5.70) Hemoglobin 13.7 g/dL (13.0-17.5) Hematocrit 42.8 % (39.0-53.0) Mean Corpuscular Volume 85 fL (79-100) Mean Corpuscular Hemoglobin 27 pg (25-35) Mean Corpuscular Hemoglobin Concent 32 g/dL (31-37) Red Cell Distribution Width 15.7 % (11.5-14.5) Platelet Count 257 x10^3/uL (140-400) Neutrophils (%) (Auto) 65 % (31-73) Lymphocytes (%) (Auto) 14 % (24-48) Monocytes (%) (Auto) 10 % (0-9) Eosinophils (%) (Auto) 10 % (0-3) Basophils (%) (Auto) 1 % (0-3) Neutrophils # (Auto) 6.6 x10^3/uL (1.8-7.7) Lymphocytes # (Auto) 1.4 x10^3/uL (1.0-4.8) Monocytes # (Auto) 1.0 x10^3/uL (0.0-1.1) Eosinophils # (Auto) 1.0 x10^3/uL (0.0-0.7) Basophils # (Auto) 0.1 x10^3/uL (0.0-0.2) Sodium Level 140 mmol/L (136-145) Potassium Level 4.1 mmol/L (3.5-5.1) Chloride Level 104 mmol/L (98-107) Carbon Dioxide Level 30 mmol/L (21-32) Anion Gap 6 (6-14) Blood Urea Nitrogen 12 mg/dL (8-26) Creatinine 0.7 mg/dL (0.7-1.3) Estimated GFR (Cockcroft-Gault) 109.1 Glucose Level 95 mg/dL (70-99) Calcium Level 10.7 mg/dL (8.5-10.1) C-Reactive Protein, Quantitative 7.4 mg/L (0-3.3) Laboratory Tests Test 11/01/21 04:55 C-Reactive Protein, Quantitative 7.4 mg/L (0-3.3) Medications Active Scripts Medications Dose Route/Sig Max Daily Dose Days Date Category Artificial Tears (Dextran 70/Hypromellose) 1 Each Droperette 1 Each OU BID 10/31/21 Reported Hydroxyzine Hcl 25 Mg Tablet 25 Mg PO QID 10/31/21 Reported Ferrous Sulfate 325 Mg Tablet 1 Tab PO DAILY 10/31/21 Reported Gabapentin (Gabapentin) 100 Mg Capsule 100 Mg PO QID 10/31/21 Reported Tylenol Extra Strength (Acetaminophen) 500 Mg Tablet 2 Tab PO Q8HRS PRN 04/26/21 Reported [probiotic w/vit C] 2 Pkt PO DAILY 04/26/21 Reported Docusate Sodium 100 Mg Capsule 1 Cap PO BID 7 03/15/21 Reported Metamucil (Psyllium Husk) 0.52 Gm Capsule 0.52 Gm PO BID 03/15/21 Reported Cyclobenzaprine Hcl 10 Mg Tablet 10 Mg PO BID 03/15/21 Reported NITRO-DUR 0.2mg/hr (Nitroglycerin) 1 Each Patch.td24 1 Each TD DAILY 11/26/14 Reported Vitamin D3 (Cholecalciferol (Vitamin D3)) 1,000 Unit Tablet 1 Tab PO DAILY 11/26/14 Reported Losartan Potassium 50 Mg Tablet 50 Mg PO DAILY 11/26/14 Reported Simvastatin 80 Mg Tablet 80 Mg PO HS 10/02/13 Reported Niacin Flush Free 500 Mg Cap (Niacin (Inositol Niacinate)) 400 Mg Capsule 500 Mg PO BID 10/02/13 Reported Centrum Silver Tablet (Multivits-Min/Fa/Lycopene/Lut) 1 Each Tablet 1 Each PO DAILY 10/02/13 Reported Omeprazole 20 Mg Capsule.dr 20 Mg PO BID 10/02/[address] chest dated 10/31/2021 reviewed. IMPRESSION: 1. Large consolidative opacity in the left lower lobe, compatible with known pulmonary malignancy with collapsed lung, worsened since prior exam. 2. Increasing size and number of left pleural and fissure based nodules/masses compatible with metastasis. 3. Two sub-5 mm solid pulmonary nodules in the right upper and middle lobes, indeterminate. 4. Trace amount of layering left pleural effusion. 5. Mild ascending thoracic aortic aneurysm. Electronically signed by: Griselda Hernandez MD (10/31/2021 4:35 PM) [id number] Impression . 1. 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 He is status post Keytruda and being followed by [facility]. The patient has not responded to chemo according to the . He deferred a systemic chemo. Now, he presents with dizziness. His chest x-ray shows a mass effect with possible small effusion. Effusion not well seen on a decubitus film. Plan . RECOMMENDATIONS: 1. Discussed with the patient. CT chest reviewed. It shows a mass in the left lower lobe along with pleural metastasis and small loculated pleural effusion. This is all due to progression of tumor. Will leave up to the patient if he wants to pursue any further chemo. He has declined previously. 2. The patient's oxygenation status is stable. 3. Monitor blood pressure closely. 4. The patient continues to defer any further chemo. 5. The patient to follow up with [facility] as needed post-discharge. 6. Patient can be discharged from a pulmonary standpoint. TONIA BEJARANO MD Nov 01, 2021 09:49
[2021-11-01 11:00] VITALS: BP 120/78
--- NOTE | 2021-11-01 12:05 | PDOC ---
[employer] PROGRESS NOTE Date of Service DOS: DATE: 11/01/21 TIME: 12:01 Chief Complaint Chief Complaint Recurrent left pleural effusion Dizziness History of Present Illness History of Present Illness Patient is a 76-year-old male with past medical history left lung ashly ocarcinoma, who presents to the ED as a transfer [facility] due to concerns for recurrent left pleural effusion. He was initially sent to [facility] ER at the behest of his PCP, Dr. Stroud. Chest x-ray at [facility] did show a small left pleural effusion with lingular and left lower lobe infiltrate and/or scarring, that appears increased from prior. He states he was admitted on 03/14/2021 and had thoracentesis performed at that time. He did follow-up with oncology, but states he decided not to pursue chemotherapy or radiation for the findings of stage IV lung adenocarcinoma. Patient states he lives at home with his , and gets around at home rather gingerly. At the time of my evaluation he is breathing on room air. Labs on admission were rather unremarkable. He has been admitted for further medical management. 11/01: Patient evaluated with at bedside. He is stable on room air. I discussion with Dr. Mosley, not a significant pleural effusion, certainly not amenable to drainage. He has history of BPPV with physical therapy also discussed methods available at home to treat his dizzines (Nila maneuvers). He can discharge home today with family care. Greater than 30 minutes spent managing the discharge of this patient. Vitals/I&O Vitals/I&O: Vital Signs Date Time Temp Pulse Resp B/P (MAP) Pulse Ox O2 Delivery O2 Flow Rate FiO2 11/01/21 11:00 98.0 95 18 120/78 (92) 92 98.0 10/31/21 20:00 Room Air I & O 10/31/21 10/31/21 11/01/21 15:00 23:00 07:00 Intake Total 660 ml 480 ml Balance 660 ml 480 ml Physical Exam General: Alert, Oriented X3, Cooperative Heart: Regular rate Lungs: Crackles, Other Abdomen: Normal bowel sounds Extremities: No clubbing Skin: No rashes, No breakdown Labs Labs: Laboratory Tests Test 11/01/21 04:55 C-Reactive Protein, Quantitative 7.4 mg/L (0-3.3) Comment Review of Relevant I have reviewed the following items wade (where applicable) has been applied. Medications: Current Medications Medications (Trade) Dose Ordered Sig/Arsen Route PRN Reason Start Time Stop Time Status Last Admin Dose Admin Cyclobenzaprine HCl (Flexeril) 10 mg BID PO 10/31/21 21:00 11/01/21 09:16 Docusate Sodium (Colace) 100 mg BID PO 10/31/21 21:00 11/01/21 09:16 Hydroxyzine HCl (Atarax) 25 mg QID PO 10/31/21 13:00 11/01/21 09:16 Pantoprazole Sodium (Protonix) 40 mg DAILYAC PO 11/01/21 07:30 11/01/21 09:16 Simvastatin (Zocor) 80 mg QHS PO 10/31/21 21:00 10/31/21 21:52 Justifications for Admission Other Justification YOSI PEREYRA MD Nov 01, 2021 12:05
--- NOTE | 2021-11-01 12:07 | PDOC3 ---
Discharge Summary Visit Information Date of Admission: Oct 31, 2021 Date of Discharge: Nov 01, 2021 Brief Hospital Course Allergies Allergies Coded Allergies Type Severity Reaction Last Updated Verified adhesive Allergy Mild 10/02/13 Yes Vital Signs Vital Signs Date Time Temp Pulse Resp B/P (MAP) Pulse Ox O2 Delivery O2 Flow Rate FiO2 11/01/21 11:00 98.0 95 18 120/78 (92) 92 98.0 10/31/21 20:00 Room Air Lab Results Laboratory Tests Test 10/31/21 07:10 11/01/21 04:55 White Blood Count 10.2 x10^3/uL (4.0-11.0) Red Blood Count 5.06 x10^6/uL (4.30-5.70) Hemoglobin 13.7 g/dL (13.0-17.5) Hematocrit 42.8 % (39.0-53.0) Mean Corpuscular Volume 85 fL (79-100) Mean Corpuscular Hemoglobin 27 pg (25-35) Mean Corpuscular Hemoglobin Concent 32 g/dL (31-37) Red Cell Distribution Width 15.7 % (11.5-14.5) Platelet Count 257 x10^3/uL (140-400) Neutrophils (%) (Auto) 65 % (31-73) Lymphocytes (%) (Auto) 14 % (24-48) Monocytes (%) (Auto) 10 % (0-9) Eosinophils (%) (Auto) 10 % (0-3) Basophils (%) (Auto) 1 % (0-3) Neutrophils # (Auto) 6.6 x10^3/uL (1.8-7.7) Lymphocytes # (Auto) 1.4 x10^3/uL (1.0-4.8) Monocytes # (Auto) 1.0 x10^3/uL (0.0-1.1) Eosinophils # (Auto) 1.0 x10^3/uL (0.0-0.7) Basophils # (Auto) 0.1 x10^3/uL (0.0-0.2) Sodium Level 140 mmol/L (136-145) Potassium Level 4.1 mmol/L (3.5-5.1) Chloride Level 104 mmol/L (98-107) Carbon Dioxide Level 30 mmol/L (21-32) Anion Gap 6 (6-14) Blood Urea Nitrogen 12 mg/dL (8-26) Creatinine 0.7 mg/dL (0.7-1.3) Estimated GFR (Cockcroft-Gault) 109.1 Glucose Level 95 mg/dL (70-99) Calcium Level 10.7 mg/dL (8.5-10.1) C-Reactive Protein, Quantitative 7.4 mg/L (0-3.3) Laboratory Tests Test 11/01/21 04:55 C-Reactive Protein, Quantitative 7.4 mg/L (0-3.3) Brief Hospital Course Mr. Eddy is a 76 old male who presented with: Recurrent pleural effusion Dizziness Patient is a 76-year-old male with past medical history left lung adenocarcinoma, who presents to the ED as a transfer [facility] due to concerns for recurrent left pleural effusion. He was initially sent to [facility] ER at the behest of his PCP, Dr. Stroud. Chest x-ray at [facility] did show a small left pleural effusion with lingular and left lower lobe infiltrate and/or scarring, that appears increased from prior. He states he was admitted on 03/14/2021 and had thoracentesis performed at that time. He did follow-up with oncology, but states he decided not to pursue chemotherapy or radiation for the findings of stage IV lung adenocarcinoma. Patient states he lives at home with his , and gets around at home rather gingerly. At the time of my evaluation he is breathing on room air. Labs on admission were rather unremarkable. He has been admitted for further medical management. 11/01: Patient evaluated with at bedside. He is stable on room air. I discussion with Dr. Mosley, not a significant pleural effusion, certainly not amenable to drainage. He has history of BPPV with physical therapy also discussed methods available at home to treat his dizzines (Nila maneuvers). He can discharge home today with family care. Greater than 30 minutes spent managing the discharge of this patient. Discharge Information Condition at Discharge: Stable Disposition/Orders: D/C to Home Scheduled Cholecalciferol (Vitamin D3) (Vitamin D3) 1,000 Unit Tablet, 1 TAB PO DAILY, #90 Ref 3 (Reported) Entered as Reported by: SUSAN NICHOLS on 11/26/14 0914 Last Action: Reviewed on 10/31/2154 by Susan Gill Cyclobenzaprine Hcl (Cyclobenzaprine Hcl) 10 Mg Tablet, 10 MG PO BID for muscle relaxant, (Reported) Entered as Reported by: STEPHAN TRAN on 03/15/211045 Last Action: Continued on 10/31/211141 by YOSI PEREYRA MD Dextran 70/Hypromellose (Artificial Tears) 1 Each Droperette, 1 EACH OU BID for eye dryness, (Reported) Entered as Reported by: SHARLENE RHODES on 10/31/211256 Last Taken: Unknown Dose on Unknown Date & Time Last Action: New Order on 10/31/21 1257 by SHARLENE RHODES Docusate Sodium (Docusate Sodium) 100 Mg Capsule, 1 CAP PO BID for constipation for 7 Days, #14 Ref 0 (Reported) Entered as Reported by: STEPHAN TRAN on 03/15/211045 Last Action: Continued on 10/31/211141 by YOSI PEREYRA MD Ferrous Sulfate (Ferrous Sulfate) 325 Mg Tablet, 1 TAB PO DAILY for supplement, #30 Ref 3 (Reported) Entered as Reported by: Susan Gill on 10/31/2154 Last Action: Continued on 10/31/211141 by YOSI PEREYRA MD Gabapentin (Gabapentin ) 100 Mg Capsule, 100 MG PO QID for NEUROGENIC PAIN, (Reported) Entered as Reported by: Susan Gill on 10/31/2154 Last Action: Edited on 10/31/212007 by SHARLENE RHODES Hydroxyzine Hcl (Hydroxyzine Hcl) 25 Mg Tablet, 25 MG PO QID for itching, (R eported) Entered as Reported by: Susan Gill on 10/31/2154 Last Action: Continued on 10/31/211141 by YOSI PEREYRA MD Losartan Potassium (Losartan Potassium) 50 Mg Tablet, 50 MG PO DAILY, (Reported) Entered as Reported by: SUSAN NICHOLS on 11/26/14 0914 Last Action: Continued on 10/31/211141 by YOSI PEREYRA MD Multivits-Min/Fa/Lycopene/Lut (Centrum Silver Tablet) 1 Each Tablet, 1 EACH PO DAILY, (Reported) Entered as Reported by: ABDIRASHID ESCAMILLA on 10/02/13 0910 Last Action: Converted on 10/31/211141 by YOSI PEREYRA MD Niacin (Inositol Niacinate) (Niacin Flush Free 500 Mg Cap) 400 Mg Capsule, 500 MG PO BID, (Reported) Entered as Reported by: ABDIRASHID ESCAMILLA on 10/02/13909 Last Action: Reviewed on 10/31/2154 by Susan Gill Nitroglycerin (NITRO-DUR 0.2mg/hr) 1 Each Patch.td24, 1 EACH TD DAILY, (Reported) Entered as Reported by: SUSAN NICHOLS on 11/26/14915 Last Action: Continued on 10/31/211141 by YSOI PEREYRA MD Omeprazole (Omeprazole) 20 Mg Capsule.dr, 20 MG PO BID for rx, (Reported) Entered as Reported by: ABDIRASHID ESCAMILLA on 10/02/13909 Last Action: Edited on 10/31/212007 by SHARLENE RHODES Psyllium Husk (Metamucil) 0.52 Gm Capsule, 0.52 GM PO BID for expectorant, (Reported) Entered as Reported by: STEPHAN TRAN on 03/15/211045 Last Action: Converted on 10/31/211141 by YOSI PEREYRA MD Simvastatin (Simvastatin) 80 Mg Tablet, 80 MG PO HS, (Reported) Entered as Reported by: ABDIRASHID ESCAMILLA on 10/02/13909 Last Action: Converted on 10/31/211141 by YOSI PEREYRA MD [probiotic w/vit C] , 2 PKT PO DAILY, (Reported) Entered as Reported by: ESTEVAN RICHARD on 04/26/21903 Last Action: Reviewed on 10/31/2154 by Susan Gill Scheduled PRN Acetaminophen (Tylenol Extra Strength) 500 Mg Tablet, 2 TAB PO Q8HRS PRN for PAIN, (Reported) Entered as Reported by: ESTEVAN RICHARD on 04/26/21903 Last Action: Reviewed on 10/31/2154 by Susan Gill Discontinued Medications Gentamicin Sulfate (Gentamicin Sulfate 0.3% Ophth Soln) 5 Ml Drops, 1 DROP EACHEYE BID for eye gtt for 5 Days, #5 Ref 0 (Reported) Entered as Reported by: STEPHAN TRAN on 03/15/211045 Last Action: Discontinued on 10/31/211256 by SHARLENE RHODES Nitroglycerin (NITRO-DUR 0.2mg/hr) 1 Each Patch.td24, 1 EACH TD DAILY for cad, (Reported) Entered as Reported by: Susan Gill on 10/31/21 0055 Last Action: Discontinued on 10/31/212007 by SHARLENE RHODES Justicifation of Admission Dx: Justifications for Admission: Justification of Admission Dx: Yes Sepsis: Hypoxemia YOSI PEREYRA MD Nov 01, 2021 12:07
--- NOTE | 2021-11-01 14:00 | NUR ---
Discharge note: Patient was discharged home with self care with as his caregiver. Patients IV was discontinued without any complications per LEDY. Patient at bedside at the time of discharge education. Patients was given discharge summary/instructions, follow-ups and educational materials. Patients did not have any further questions or concerns. Patient was taken to the main entrance via wheelchair with all personal belongings accompanied by LEDY Locke, where pulled her car and taking patient home.
--- NOTE | 2021-11-01 15:46 | RAD ---
XR CHEST 1V INDICATION: Recurrent left pleural effusion . COMPARISON STUDY: 10/30/2021. FINDINGS: Life Support Devices: Right IJ Port-A-Cath. Lungs: Elevation of the left hemidiaphragm. Left mid and lower lung opacities. Pleura: Small left pleural effusion. Heart and Mediastinum: Stable cardiomediastinal silhouette and great vessels. Bones and Soft Tissues: Stable regional skeleton and soft tissues. IMPRESSION: 1. Stable left mid and lower lung opacities. 2. Stable small to moderate left pleural effusion. Electronically signed by: Abdias Tsang MD (11/01/2021 3:44 PM) [id number]
== END 2021-11-01 14:00 | disposition home or self-care (01) | DRG 181 ==
LOC: 2 NORTH 23:57
PROVIDERS: ADMIT Student in an Organized Health Care Education/Training Program; ATTEND Student in an Organized Health Care Education/Training Program
DX: C34.92 Malignant neoplasm of unspecified part of left bronchus or lung (principal); J91.0 Malignant pleural effusion; E78.5 Hyperlipidemia, unspecified; I25.10 Atherosclerotic heart disease of native coronary artery without angina pectoris; K59.00 Constipation, unspecified; Z82.49 Family history of ischemic heart disease and other diseases of the circulatory system; Z83.3 Family history of diabetes mellitus; M54.50 Low back pain, unspecified; Z91.041 Radiographic dye allergy status; H81.10 Benign paroxysmal vertigo, unspecified ear
CPT/HCPCS: 36415; 71045; 71046; 71250; 80048; 85025; 86140; J1644; 95992-GP; 97530-GP; G0378